=== PATIENT | female | born 1940 ===

== ENCOUNTER 2023-06-15 07:30 | Inpatient (IN) | payer OTHER ==
[~2023-06-15] VITALS: Ht 157.5 cm; Wt 55.3 kg
[2023-06-15 11:28] LABS: ALBUMIN 4.1 gm/dL (3.4-5.0); BILIRUBIN TOTAL 0.33 mg/dL (0.3-1.2); CALCIUM 10.2 mg/dL (8.5-10.1); CREATININE SERUM 1.14 mg/dL (0.55-1.02); GFR 45.86; GLOBULINA 3.8 G/DL (2.4-3.5); POTASSIUM 3.78 mEq/L (3.5-5.1); TOTAL PROTEIN 7.9 gm/dL (6.4-8.2)
[2023-06-24] MEDS ORDERED: METOPROLOL SUC100 MG (09:52)
[2023-06-24] MEDS ORDERED: ATORVASTATIN CA20 MG (09:52)
[2023-06-24] MEDS ORDERED: AMLODIPINE BESYL5 MG (09:52)
[2023-06-24] MEDS ORDERED: ALLOPURINOL300 MG (09:53)
[2023-06-24] MEDS ORDERED: METFORMIN HCL500 M4 (09:53)
[2023-06-24] MEDS ORDERED: SPIRONOLACTONE25 MG (09:53)
[2023-06-24] MEDS ORDERED: GABAPENTIN400 MG (09:53)
[2023-06-24] MEDS ORDERED: CLOPIDOGREL BIS75 MG (09:53)
[2023-06-24] MEDS ORDERED: IRBESARTAN300 MG (09:53)
[2023-06-25 12:20] LABS: HEMATOCRIT 35.3 % (36.0-45.00); HEMOGLOBIN 11.5 g/dL (12.0-15.00); MEAN CORPUSCULAR HEMOGLOBIN 28.4 pg (27.00-32.0); MEAN CORPUSCULAR HGB CONC 32.7 g/dl (32.0-36.0); PLATELET COUNT 157 K/uL (150-450); RED BLOOD COUNT 4.05 M/uL (4.00-6.00); RED CELL DISTRIBUTION WIDTH 15.2 % (11.5-14.5)
[2023-06-27] MEDS ORDERED: LORAZEPAM0.5 MG PO (09:59)
== END 2023-06-27 11:17 | disposition home or self-care (01) | DRG 743 ==
LOC: O/R 06-24 06:55 → OB/GYN 06-24 06:55 → SURH 06-24 07:00 → OB/GYN 06-24 10:35
PROVIDERS: ADMIT Obstetrics & Gynecology; ATTEND Obstetrics & Gynecology
PROC: 0JQC0ZZ Repair Pelvic Region Subcutaneous Tissue and Fascia, Open Approach (ICD-10-PCS; 2023-06-24)
PROC: 0UT97ZZ Resection of Uterus, Via Natural or Artificial Opening (ICD-10-PCS; principal; 2023-06-24 07:00)
DX: D25.2 Subserosal leiomyoma of uterus (principal); N84.0 Polyp of corpus uteri; N72 Inflammatory disease of cervix uteri; Z20.822 Contact with and (suspected) exposure to COVID-19